=== PATIENT | male | born 1960 | race Two or more races ===

== ENCOUNTER 2018-07-18 10:59 | Emergency (ER) | payer OTHER ==
[2018-07-18 11:10] VITALS: BP 156/95; PULSE 79; TEMP 98.3; BMI 46.5
--- NOTE | 2018-07-18 11:56 | PDOC ---
History of Present Illness - General Chief Complaint: Pain, Acute Stated Complaint: PAIN IN RIGHT LEG Time Seen by Provider: 07/18/18 11:29 History Source: Patient - History of Present Illness Occurred: reports: other Severity: Yes: moderate Lower Extremity Pain Location: right: leg Past History - Past Medical History Allergies/Adverse Reactions: Allergies Allergy/AdvReac Type Severity Reaction Status Date / Time No Known Allergies Allergy Verified 07/18/18 11:06 Home Medications: Ambulatory Orders Fenofibrate Nanocrystallized [Fenofibrate] 145 mg PO DAILY 12/31/16 Isosorbide Mononitrate [Isosorbide Mononitrate ER] 120 mg PO DAILY 12/31/16 Metformin HCl 1,000 mg PO BID 12/31/16 Olmesartan Medoxomil 40 mg PO DAILY 12/31/16 COPD: No DVT: No Diabetes: Yes (NIDM) HTN: Yes Hypercholesterolemia: Yes - Immunization History Immunization Up to Date: Yes - Suicide/Smoking/Psychosocial Hx Smoking History: Never smoked Have you smoked in the past 12 months: No Information on smoking cessation initiated: No Hx Alcohol Use: No Drug/Substance Use Hx: No Substance Use Type: None Review of Systems - Review of Systems Constitutional: No: Chills, Fever Respiratory: No: Shortness of Breath Cardiac (ROS): No: Chest Pain, Palpitations Musculoskeletal: Yes: Joint Pain. No: Joint Swelling *Physical Exam - Vital Signs Last Vital Signs Temp Pulse Resp BP Pulse Ox 98.3 F 79 16 156/95 99 07/18/18 11:06 07/18/18 11:06 07/18/18 11:06 07/18/18 11:06 07/18/18 11:06 - Physical Exam General Appearance: Yes: Appropriately Dressed. No: Apparent Distress HEENT: positive: Normal Voice Neck: positive: Supple Respiratory/Chest: positive: Lungs Clear, Normal Breath Sounds. negative: Respiratory Distress Cardiovascular: positive: Regular Rate, S1, S2 Gastrointestinal/Abdominal: positive: Soft. negative: Tender Extremity: positive: Pedal Edema (1 pedal edema b/l, no sig ttp, no dermatitis, pedal pulses intact, no joint swelling). negative: Erythema Integumentary: positive: Dry, Warm Neurologic: positive: Fully Oriented, Alert, Normal Mood/Affect Medical Decision Making - Medical Decision Making 07/18/18 11:58 57-year-old male, history of diabetes, high blood pressure, venous insufficiency to bilateral lower extremity s/p RLE surgery for same in 2017, no h/o DVT, chronic b/l LE edema, on lasix, here for evaluation for intermittent RLE pain x 4 months. Patient reports pain that starts in right knee and radiates to foot, unable to describe, 6/10, present at rest as well but worsens when going up steps and with any incline per patient. Taking Motrin with some relief. Denies any redness to skin wound, fever, chills, dyspnea on exertion, CP or palpitation. No trauma. See exam Chronic RLE pain Possibly 2/2 venous insufficiency/edema per hx Doubt DVT given duration Not great story for claudication, pedal pulses intact b/l No e/o infxn -dc w/ OTC pain meds as needed and encourage pmd f/u next week for further evaluation, may need vasc input as well *DC/Admit/Observation/Transfer Diagnosis at time of Disposition: Leg pain, right, Edema extremities - Discharge Dispostion Disposition: HOME Condition at time of disposition: Good - Referrals Referrals: Leonel Vargas MD [Primary Care Provider] - - Patient Instructions Printed Discharge Instructions: DI for Edema Due to Venous Stasis, DI for Peripheral Edema -- Bilateral Additional Instructions: The cause of your pain is unclear at this time but it could be caused by the chronic swelling in your legs. Continue your Lasix and follow-up with your PMD next week, who may refer you to a vascular doctor. Continue taking Motrin or Tylenol for pain as needed - Post Discharge Activity
== END 2018-07-18 12:01 | disposition home or self-care (01) ==
LOC: JERFT 10:59
DX: M79.604 Pain in right leg (principal); I10 Essential (primary) hypertension; E11.9 Type 2 diabetes mellitus without complications; Z79.84 Long term (current) use of oral hypoglycemic drugs; E78.00 Pure hypercholesterolemia, unspecified
CPT/HCPCS: 99281-25